=== PATIENT | female | born 1995 | race African-American/Black ===

== ENCOUNTER 2017-01-21 21:15 | Emergency (ER) | payer SELFPAY ==
[~2017-01-21] VITALS: Ht 162.6 cm; Wt 81.6 kg
[2017-01-21 21:21] VITALS: BP 127/68
[2017-01-21] MEDS ORDERED: PRED20TA PO (21:37)
--- NOTE | 2017-01-21 21:38 | PHYS DOC ---
Past Medical History Past Medical History: No Pertinent History Past Surgical History: Alcohol Use: None Drug Use: None Adult General Chief Complaint Chief Complaint: SKIN RASH/ABSCESS [facility] HPI Patient is a 21 year old male presents emergency department stating that she has a rash on her arms and on her torso. She states she's had this for approximately one week. She is unsure what she has come in contact with. She denies any new soaps no new laundry detergents no nuchal he has not been washed. She denies any fever, chills she does state the area itches in which she 's been scratching. Patient denies nausea or vomiting. She denies any shortness of air. She has not taken anything for the itching or the irritation. Review of Systems Review of Systems Constitutional: Denies fever or chills [] Eyes: Denies change in visual acuity, redness, or eye pain [] HENT: Denies nasal congestion or sore throat [] Respiratory: Denies cough or shortness of breath [] Cardiovascular: No additional information not addressed in HPI [] GI: Denies abdominal pain, nausea, vomiting, bloody stools or diarrhea [] : Denies dysuria or hematuria [] Musculoskeletal: Denies back pain or joint pain [] Integument: rash denies skin lesions [] Neurologic: Denies headache, focal weakness or sensory changes [] Endocrine: Denies polyuria or polydipsia [] Allergies Allergies Allergies Coded Allergies Type Severity Reaction Last Updated Verified No Known Drug Allergies 03/14/14 No Physical Exam Physical Exam Constitutional: Well developed, well nourished, no acute distress, non-toxic appearance. [] HENT: Normocephalic, atraumatic, bilateral external ears normal, oropharynx moist, no oral exudates, nose normal. Bilateral tympanic membranes appear to be normal. Throat with no erythematous no exudate no redness noted. Eyes: PERRLA, EOMI, conjunctiva normal, no discharge. [] Neck: Normal range of motion, no tenderness, supple, no stridor. [] Cardiovascular:Heart rate regular rhythm, no murmur [] Lungs & Thorax: Bilateral breath sounds clear to auscultation [] Skin: Warm, dry, no erythema, patient with rash noted on her right upper breast area. Patient with other spots noted on her arms and abdomen. The areas appear to be red slightly raised. No drainage or discharge noted from the sites. Back: No tenderness Extremities: No tenderness, no cyanosis, no clubbing, ROM intact, no edema. [] Neurologic: Alert and oriented X 3, normal motor function, normal sensory function, no focal deficits noted. [] Psychologic: Affect normal, judgement normal, mood normal. [] Current Patient Data Vital Signs Vital Signs Date Time Temp Pulse Resp B/P (MAP) Pulse Ox O2 Delivery O2 Flow Rate FiO2 01/21/17 21:21 98.9 85 20 97 Room Air 98.9 EKG EKG [] Radiology/Procedures Radiology/Procedures [] Course & Med Decision Making Course & Med Decision Making Pertinent Labs and Imaging studies reviewed. (See chart for details) She was recommended to use Benadryl 25 mg every 4-6 hours as needed for itching or irritation. Patient was also noted discharge that we will provide her with prednisone to help with inflammation and redness as well. Recommended keeping the area clean and dry and cool. Also recommended Aveeno baths. Patient will be discharged home in stable condition with signs and symptoms to return back to emergency department. Patient agrees with discharge instructions treatment regimens and follow-up recommendations. [] Dragon Disclaimer Dragon Disclaimer This electronic medical record was generated, in whole or in part, using a voice recognition dictation system. Departure Departure Impression: Primary Impression: Contact dermatitis Disposition: 01 HOME, SELF-CARE Condition: STABLE Patient Instructions: Contact Dermatitis, [id number] Additional Instructions: Activity as tolerated. Benadryl 25 mg every 4-6 hours as needed for itching or irritation. This medication will cause drowsiness do not take any be alert and oriented. Medication as prescribed. Keep the area clean dry and cool. You may use Aveeno baths to help soothe the skin. Follow-up with your primary care physician in the next 5-7 days. Return back to emergency prior signs symptoms of become worse. Scripts Prednisone (PREDNISONE) 20 Mg Tablet 40 MG PO DAILY, #14 TAB Prov: RONEN PIERCE APRN 01/21/17 RONEN PIERCE APRN January 21, 2017 21:38
== END 2017-01-21 21:49 | disposition home or self-care (01) ==
LOC: ER 21:15
DX: L25.9 Unspecified contact dermatitis, unspecified cause (principal)
CPT/HCPCS: 81025; 99283

== ENCOUNTER 2018-05-10 04:25 | Emergency (ER) | payer OTHER ==
[~2018-05-10] VITALS: Ht 170.2 cm; Wt 90.7 kg
[~2018-05-10 04:25] MED LIST: PRED20TA PO
[2018-05-10 04:34] VITALS: BP 124/67
[2018-05-10] MEDS ORDERED: HYDR15CR20 TP (04:42)
[2018-05-10] MEDS ORDERED: SULF1TAB24 PO (04:42)
--- NOTE | 2018-05-10 04:42 | PHYS DOC ---
Past Medical History Past Medical History: No Pertinent History Past Surgical History: Alcohol Use: None Drug Use: None Adult General Chief Complaint Chief Complaint: INSECT BITE HPI HPI Patient is a 22-year-old female who presents with report of insect bite to her left forearm. Patient states that over the last few days there has been an increase in swelling and pain to the area. She denies any fever. She stated the pain is moderate and is worsened with palpation. Review of Systems Review of Systems Constitutional: Denies fever or chills [] Respiratory: Denies cough or shortness of breath [] Musculoskeletal: Denies back pain or joint pain [] Integument: Complains of swelling and erythema to left forearm[] All other systems were reviewed and found to be within normal limits, except as documented in this note. Allergies Allergies Allergies Coded Allergies Type Severity Reaction Last Updated Verified No Known Drug Allergies 03/14/14 No Physical Exam Physical Exam Constitutional: Well developed, well nourished, no acute distress, non-toxic appearance. [] Neck: Normal range of motion, no tenderness, supple, no stridor. [] Cardiovascular:Heart rate regular rhythm, no murmur [] Lungs & Thorax: Bilateral breath sounds clear to auscultation [] Skin: Left lateral forearm demonstrates approximately 5 x 7 cm area of erythema , induration and warmth. No fluctuance is noted. [] EKG EKG [] Radiology/Procedures Radiology/Procedures [] Course & Med Decision Making Course & Med Decision Making Pertinent Labs and Imaging studies reviewed. (See chart for details) [] Dragon Disclaimer Dragon Disclaimer This electronic medical record was generated, in whole or in part, using a voice recognition dictation system. Departure Departure Impression: Primary Impression: Cellulitis Disposition: 01 HOME, SELF-CARE Condition: STABLE Referrals: NO PCP (PCP) Patient Instructions: Cellulitis Additional Instructions: Take medication as directed and follow-up with your primary care provider in the next few days. Scripts Hydrocortisone Valerate (HYDROCORTISONE VALERATE) 15 Gm Cream..g. 1 PATRICK TP BID, #15 GM Prov: YOUNG REGALADO Jr. DO 05/10/18 Sulfamethoxazole/Trimethoprim (BACTRIM DS TABLET) 1 Each Tablet 1 TAB PO BID, #20 TAB Prov: YOUNG REGALADO Jr. DO 05/10/18 Problem Qualifiers Primary Impression: Cellulitis Site of cellulitis: extremity Site of cellulitis of extremity: upper extremity Laterality: left Qualified Codes: L03.114 - Cellulitis of left upper limb YOUNG REGALADO Jr. DO May 10, 2018 04:42
== END 2018-05-10 04:55 | disposition home or self-care (01) ==
LOC: ER 04:25
DX: L03.114 Cellulitis of left upper limb (principal); S50.862A Insect bite (nonvenomous) of left forearm, initial encounter; W57.XXXA Bitten or stung by nonvenomous insect and other nonvenomous arthropods, initial encounter; Y93.89 Activity, other specified; Y92.89 Other specified places as the place of occurrence of the external cause; Y99.8 Other external cause status
CPT/HCPCS: 99283